=== PATIENT | female | born 1980 | race Caucasian/White ===

== ENCOUNTER 2016-10-16 04:38 | Inpatient (IN) | payer OTHER ==
[~2016-10-16] VITALS: Ht 157.5 cm; Wt 68.9 kg
[~2016-10-16 04:38] MED LIST: ASCO500T6 PO; CO ENZYME; ERGO400C PO; MSM PO; MULT1TAB34 PO; [UNRECOGNIZED DRUG - OTHER] PO; probiotics PO
[2016-10-16] MEDS ORDERED: fentaNYL-PF 50 mCg/mL 2 mL Inj IVPUSH PRN (05:25)
[2016-10-16] MEDS ORDERED: Ondansetron 2 mg/mL 2 mL Inj IVPUSH PRN ×2 (05:25→13:25)
[2016-10-16] MEDS ORDERED: Hemorrhage Kit, Post Partum XX ONE ×2 (05:25→15:35)
[2016-10-16] MEDS ORDERED: Sodium Chloride LOK Flush 10 mL Syringe IVFLUSH PRN (05:25)
[2016-10-16] MEDS ORDERED: Oxytocin 30 Units/500 mL LR 30 UNITS in IV Premix 1 EACH IV PRN ×4 (05:25→15:35)
[2016-10-16] MEDS ORDERED: Oxytocin 10 Unit/mL Inj IM PRN ×2 (05:25→15:35)
[2016-10-16] MEDS ORDERED: Carboprost 250 mCg/mL Inj IM PRN ×2 (05:25→15:35)
[2016-10-16] MEDS ORDERED: Methylergonovine 0.2 mg/mL Inj IM PRN ×2 (05:25→15:35)
[2016-10-16] MEDS ORDERED: Betameth Ace-Betam SodPhos 6 mg/mL 5 mL Inj ONE (05:43)
[2016-10-16] MEDS ORDERED: Betameth Ace-Betam SodPhos 6 mg/mL 5 mL Inj IM ONE (06:15)
[2016-10-16 06:31] LABS: Mean Corpuscular Volume 86.9 fL (81-100)
[2016-10-16] MEDS ORDERED: Ampicillin Inj 2,000 MG in 0.9% Sodium Chloride 100 ML IV ONE (06:55)
[2016-10-16] MEDS: Lactated Ringer's 1,000 ML IV PRN ×2 (07:44→14:31)
[2016-10-16] MEDS ORDERED: Ampicillin Inj 1,000 MG in 0.9% Sodium Chloride 50 ML IV SCH ×3 (11:45→12:00)
[2016-10-16] MEDS ORDERED: fentaNYL 2 mCg/mL-Bupivicaine 0.125% 100 mL Premix EPIDURAL ONE (13:12)
[2016-10-16] MEDS ORDERED: Lactated Ringer's 1,000 ML IV SCH ×2 (13:22→15:31)
[2016-10-16] MEDS ORDERED: Lactated Ringer's 500 ML IV ONE (13:22)
[2016-10-16] MEDS ORDERED: EPHEDrine Sulfate 50 mg/mL Inj IVPUSH PRN (13:25)
[2016-10-16] MEDS ORDERED: Atropine 1 mg/10 mL (Code) Syringe IVPUSH PRN (13:25)
[2016-10-16] MEDS ORDERED: fentaNYL 2 mCg/mL-Bupiv 0.125% 100 ML EPIDURAL SCH (13:25)
--- NOTE | 2016-10-16 13:26 | PCM.HPANE ---
Patient Data Surgeon Admitting Provider:Rikki Ocampo MD Attending Provider:Rikki Ocampo MD Primary Care Physician:Rikki Ocampo MD Other Provider:Jayro Campoverde Anesthesia Reason for Visit Active Labor ACTIVE LABOR Ht/WT & BMI Body Mass Index Allergies Coded Allergies: No Known Allergies (Verified , 11/03/08) Past Anesthesia History Anesthesia History: Denies:: Anesthesia Reactions Diabetes History Hx Diabetes?: No MRSA MRSA: No Medications Hypertension Medication: No Home Meds Incl Beta Ellis: No Reported Medications Ergocalciferol-Expunged Drug, Do Not Renew! (Vitamin D-Expunged Drug, Do Not Renew!)400 Unit Capsule1,000 Iu PO DAILY Ref 0 11/03/08 [Becker Bark] No Conflict Check50 Mg PO DAILY Ref 0 11/03/08 [Co enzyme 10] No Conflict [id number] Mg DAILY Ref 0 11/03/08 Ascorbic Acid-Expunged Drug, Do Not Renew! (Vitamin C-Expunged Drug, Do Not Renew!)500 Mg Tab.axlf473 Mg PO DAILY Ref 0 11/03/08 [Msm] No Conflict Check2,000 Mg PO DAILY Ref 0 11/03/08 [probiotics] No Conflict Check PO DAILY Ref 0 11/03/08 Multivitamins W-Minerals (One Tablet Daily W/Minerals)1 Tab Tablet1 Tab PO DAILY Ref 0 11/03/08 History History of ENT Problems?: No Hx of Heart Problems?: No Hx of Respiratory Problem?: Yes Respiratory History: Positive for:: Pneumonia (As a child. ) Denies:: Asthma COPD Chest Surgery Dyspnea Emphysema Hemoptysis Tuberculosis Hx Neurologic Problems?: Yes Neurological History: Positive for:: Headaches (Migraines. ) Seizures Denies:: Alzheimer's Disease CVA Dementia Dizziness Parkinson's Disease Hx of GI Problems?: No Hx of Problems?: No Genitourinary History: Denies:: HX of Hemodialysis Kidney Stones Urinary Tract Infection HX of Peritoneal Dialysis: No Female Hx: Denies:: Endometriosis Pelvic Inflammatory Problems with Breasts? Hx Musculoskeletal Problems?: No Musculoskeletal History: Denies:: Back Injury Joint Replacement Musculoskeletal Trauma Hx of Psycho/Social Problems?: No Psycho Social History: Denies:: Anxiety Bipolar Disorder Hx Depression Suicide Attempt Hx Surgeries?: Yes (Left pelvic cyst, [facility]. ) Hx Any Other Health Problems?: No Other History: Positive for:: Hospitalization (11/2008 Surgery. ) Denies:: Cancer Endocrine Disease Thyroid Disease History Blood Transfusions: Denies:: Blood Transfusions Hx Diabetes: No Hx Alcohol Use: Yes (Denies; BAL on admit 0.001)Hx Substance Use: Yes ( Occassional Marijuana.) Smoking Status: Never Smoker Stop/Bang MAULIK Risk Assessment: Low Risk, <3 Yes Risk Assessment Category Category 1A: Patient has history of documented sleep apnea, and HAS NOT received any narcotic, sedative or anesthesia administration during this stay. Category 1B: Patient has history of documented sleep apnea, and HAS received any narcotic , sedative or anesthesia administration during this stay Category 2: Patient has SUSPECTED Obstructive Sleep Apnea, and HAS received any narcotic , sedative or anesthesia administration during this stay. Category 3: Patient has SUSPECTED Obstructive Sleep Apnea and HAS NOT received narcotic, sedative or anesthesia administration during this stay. Category 4: Outpatient in Procedural Areas with known sleep apnea or who screen positive for High Risk via the STOP/BANG questionnaire. Exam Exam General Appearance: Moderate Distress HEENT/AIRWAY: MP 2 Lungs: Clear to Auscultation, Normal Air Movement Heart: Exam Unremarkable, Regular Rate/Rhythm, No Murmurs/Rubs/Gallops Meds/Labs/Diagnostics Admission Meds Current Medications Betamethasone Acet/Betameth SodPhos 72 mg 72 mg STK-MED ONCE .ROUTE Last administered on 10/16/16 05:30; Start 10/16/16 at 05:43; Stop 10/16/16 at 05:45 ; Status DC Ampicillin Sodium/ Sodium Chloride ([facility] Inj/ Normal Saline) 50 ml @ 100 mls/hr Q6H IV Last administered on 10/16/16 12:04; Start 10/16/16 at 11:45 Labs Test 10/16/16 05:45 White Blood Count 15.4th/mm3 (3.8-10.1) Red Blood Count 4.27mil/mm3 (3.90-5.20) Hemoglobin 12.8g/dL (12.0-15.6) Hematocrit 37.1% (35.0-46.0) Mean Corpuscular Volume 86.9fL (81-100) Mean Corpuscular Hemoglobin 30.0pg (27.0-35.0) Mean Corpuscular Hemoglobin Concent 34.5% (32.0-37.0) Red Cell Distribution Width 13.9% (12.3-15.4) Platelet Count 215bil/L (150-400) Plan Impression Patient chart reviewed, patient interviewed and anesthestic plan with risks, benefits, and alternatives discussed, and informed consent obtained. ASA Physical Status: ASA2 Mod Systemic Disease Anesthetic Plan: Epidural (CSE given stage of labor) Bene/Risks/Altern/Consents: Yes HP Complete Prior to Induction: Yes (Completed prior to administration of epidural, documentation done after patient comfortable.) Gaurav Abdul MD Oct 16, 2016 13:25
[2016-10-16] MEDS ORDERED: Bupivacaine-MPF 0.25% 30 mL Inj ONE (14:06)
[2016-10-16] MEDS ORDERED: Witch Hazel-Glycerin Pads TOPICAL PRN (15:35)
[2016-10-16] MEDS ORDERED: TdaP Vaccine 0.5 mL Inj IM ONE (15:35)
[2016-10-16] MEDS ORDERED: Benzocaine (Dermoplast) 20% 60 Gm Spray TOPICAL PRN (15:35)
[2016-10-16] MEDS ORDERED: HYDROcodone-APAP 5-325 mg Tablet PO PRN (15:35)
--- NOTE | 2016-10-16 15:54 | OP ---
[address] [address] OPERATIVE REPORT PATIENT: TIFFANIE FAJARDO : 1980 MR#: [id number] ADMIT: 10/16/2016 JOB ID: [id number] DATE OF SURGERY: 10/16/2016 PREOPERATIVE DIAGNOSIS(ES): POSTOPERATIVE DIAGNOSIS(ES): PROCEDURE: Normal spontaneous vaginal delivery over an intact perineum of a late , 35-week gestation. ANESTHESIA: Intrathecal and epidural was performed. SURGEON: Rikki Ocampo MD. BABY: Vigorous 35-week baby boy. Currently, the weight is pending. Apgars of 8 and 9 at one and five minutes, respectively. LACERATIONS: No significant lacerations and no episiotomy. UTERUS: Spontaneous delivery of the placenta. No manual exploration of the uterus. DESCRIPTION: The patient is a 35-year-old, G1, P0, at 35 weeks with good dates who had spontaneous rupture of membranes with clear amniotic fluid at about 9:45 p.m. last night. She initially was uncertain if it was ruptured and she monitored it overnight and arrived at the hospital around 5 a.m. and at that time was found to have a cervix of 2 cm. She had a single dose of betamethasone, as well as was started on ampicillin for unknown GBS status and ended up getting a total of two doses of ampicillin. She had good progress through the first stage of labor and started the second stage of labor but had inadequate pushing and no descent. That stage was also complicated by severe left hip pain. She got an epidural and then started pushing a second time with still no progress. I was able to do a head rotation and the head descended down and then the patient was able to deliver the baby over the course of the next hour. There was no significant tearing. Baby had a delayed cord clamping and a couple of minutes later went over to the warmer to be evaluated by the space planner standing by. Currently, mother and baby are doing well in recovery.
[2016-10-16] MEDS ORDERED: Sodium Chloride LOK Flush 10 mL Syringe IVFLUSH SCH (16:30)
--- NOTE | 2016-10-16 18:48 | PCM.ANEP2 ---
Post Anesthesia Evaluation ASA/CMS Post Anesthesia VS in Patient's Normal Range?: Yes Resp Stable; Airway Patent?: Yes CV Function & Hydration Stable: Yes Mental Status Recovered?: Yes Pain control Satisfactory?: Yes N/V Control Satisfactory?: Yes Gaurav Abdul MD Oct 16, 2016 18:48
[2016-10-17 07:11] LABS: Mean Corpuscular Hemoglobin 30.1 pg (27.0-35.0)
--- NOTE | 2016-10-17 13:23 | PCM.DIOB ---
Obstetrical Disch Instruction Dates of Hospitalization Date of Hospital Admission Oct 16, 2016 at 05:00 Providers Admitting Physician: Rikki Ocampo MD Primary Care Physician: Rikki Ocampo MD Attending Physician: Rikki Ocampo MD Diet Discharge Diet: No restrictions Activity Discharge Activity-General: No restrictions, Pelvic Rest for 6 weeks, Try not to overdue, Be up and about, Balance rest and activity Dressing and Incisional Care Hygiene: May shower Follow Up Plan Follow-up appointment: Weeks (6) Call your provider for: Fever or Chills, Shortness of breath, Heavy vaginal bleeding, Heavy bleeding, Epigastric pain, Excessive constipation, Vaginal discomfort, Red painful breasts Rikki Ocampo MD Oct 17, 2016 13:23
[2016-10-17 13:49] VITALS: BP 116/68; PULSE 80; RESP 18
--- NOTE | 2016-10-17 13:50 | DIS ---
[address] [address] DISCHARGE SUMMARY PATIENT: TIFFANIE FAJARDO : 1980 MR#: [id number] ADMIT: 10/16/2016 JOB ID: [id number] DIS: ADMISSION DIAGNOSES: 1. . 2. Premature rupture of membranes. DISCHARGE DIAGNOSES: 1. . 2. Normal spontaneous vaginal delivery. BRIEF HISTORY AND PHYSICAL: The patient is a 35-year-old, 1, P0, who presented at labor and delivery about 8 or 9 hours after spontaneous rupture of membranes at 35 weeks and 0 days with a that was uncomplicated in course. She has a past medical history of migraines, seizures at nighttime without clear etiology on previous neurological workup, and generalized anxiety disorder. All of these had been stable during . HOSPITAL COURSE: The patient was admitted and given ampicillin for unknown GBS and , as well as a single dose of betamethasone. She spontaneously transitioned into active labor and had good progression. She had difficulty in second stage of labor with being able to push and eventually got an epidural and then later a head rotation and then normal delivery afterward. Currently, the baby is doing well in the nursery. She is planning on breast feeding. She is uncertain about control. Discharged to home, although she will be spending time with baby in the nursery. DISCHARGE MEDICATIONS: She is going to do home ibuprofen and home vitamins. IMMUNIZATIONS: Tdap was updated during this hospitalization.
--- NOTE | 2016-11-02 09:39 | PCM.HPOB ---
Subjective Referring Provider: Admitting Physician: Rikki Ocampo MD Primary Care Physician: Rikki Ocampo MD Attending Physician: Rikki Ocampo MD History of Present OB History: (1), Para (0), Pre-term (35w 0d) Obstetrical Complications: None Past Medical History Obstetrical History: See record Medical History: See Record Surgical History: See Record Social History: See Record Hx Tobacco Use: No Hx Alcohol Use: No Hx Substance Use: No Past Family History Living Arrangement: with Family Review of Systems ROS Limited due to pain, labor. No new symptoms reported except contractions and rupture of membranes/fluid loss. Medications Home medications Vitamins Allergy Coded Allergies: No Known Allergies (Verified , 11/03/08) Exam Constitutional: Well-developed HEENT: Atraumatic Abdomen: Gravid Neurological/Psychiatric: Alert, Oriented X3, Cooperative, Moderate Distress Neuro: Grossly Neurologically Intact Labs/Diagnostics Labs See Record Hx Rho(D) Immune Globulin: No Group B Strep Results: N/A Previous with GBS: No Rubella: Immune OB Intrapartum Assessment/Plan Problems: (1) Plan: Antibiotics given unknown GBS. Consider pitocin if not active labor after second dose, no tocolysis. Hx of seizures noted. Status: Acute ICD Code: Z33.1 Rikki Ocampo MD Nov 02, 2016 09:39
== END 2016-10-17 14:07 | disposition home or self-care (01) | DRG 560 ==
LOC: FBCO 04:38 → FBC 05:00
PROVIDERS: ADMIT Family Medicine; ATTEND Family Medicine
PROC: 10E0XZZ Delivery of Products of Conception, External Approach (ICD-10-PCS; principal; 2016-10-16)
DX: O42.013 Preterm premature rupture of membranes, onset of labor within 24 hours of rupture, third trimester (principal); Z3A.35 35 weeks gestation of pregnancy; Z37.0 Single live birth; O99.824 Streptococcus B carrier state complicating childbirth